=== PATIENT | female | born 1990 | race Caucasian/White ===

== ENCOUNTER 2019-04-04 13:21 | Emergency (ER) | payer SELFPAY ==
[~2019-04-04] VITALS: Ht 162.5 cm; Wt 82.7 kg
[2019-04-04] MEDS ORDERED: IBUPROFEN 600 MG (MOTRIN) TAB PO ONE (13:45)
--- NOTE | 2019-04-04 13:45 | ED Upper Extremity ---
General Chief Complaint: Trauma-Non Activation Stated Complaint: R ARM INJ Nursing Triage Note: was in the shower when she fell on her R arm with the rest of her body landing on top of her, now has swelling and pain in her R forearm and states the fingers on her R hand have a numb / tingly feeling Nursing Sepsis Screen: No Definite Risk Source: patient, family Exam Limitations: no limitations History of Present Illness Date Seen by Provider: Apr 04, 2019 Time Seen by Provider: 13:41 Initial Comments This 29-year-old female presents after she fell in the shower and sustained a contusion to the posterior aspect of the midportion of her right forearm. Patient is complaining of pain over the area. She denies loss sensation or range of motion of the shoulder or elbow or wrist. She denies other injury or accident. She is complaining of moderately severe sharp pain over the impact area. Allergies and Home Medications Allergies Coded Allergies: Penicillins (Verified Allergy, Unknown, 04/04/19) doxycycline (Verified Allergy, Unknown, 04/04/19) Patient Home Medication List Home Medication List Reviewed: Yes Review of Systems Constitutional: no symptoms reported; No chills, No fever EENTM: no symptoms reported Respiratory: no symptoms reported Cardiovascular: no symptoms reported Gastrointestinal: no symptoms reported Genitourinary: no symptoms reported Musculoskeletal: see HPI, other (over the posterior aspect of the midportion of the right forearm.) Skin: no symptoms reported Psychiatric/Neurological: No Symptoms Reported Past Zebywkg-Ywjexq-Haqydc Hx Past Med/Social Hx: Reviewed Nursing Past Med/Soc Hx Patient Social History Alcohol Use: Denies Use Recreational Drug Use: No Smoking Status: Current Everyday Smoker Type Used: Cigarettes 2nd Hand Smoke Exposure: Yes Recent Foreign Travel: No Contact w/Someone Who Travel: No Recent Infectious Disease Expo: No Recent Hopitalizations: No Physical Abuse: No Sexual Abuse: No Mistreated: No Fear: No Immunizations Up To Date Tetanus Booster (TDap): Unknown Seasonal Allergies Seasonal Allergies: No Past Medical History Respiratory: Yes Asthma Currently Using CPAP: No Currently Using BIPAP: No Cardiac: No Neurological: No Genitourinary: No Gastrointestinal: No Musculoskeletal: No Endocrine: No HEENT: No Cancer: No Psychosocial: No Integumentary: No Blood Disorders: No Physical Exam Vital Signs Vital Signs - First Documented 04/04/19 13:30 Temp 36.9 Pulse 94 Resp 18 B/P (MAP) 133/82 (99) Capillary Refill : Less Than 3 Seconds Height, Weight, BMI Height: '" Weight: lbs. oz. kg; 31.00 BMI Method: General Appearance: WD/WN, no apparent distress Neck: non-tender, supple Cardiovascular: normal peripheral pulses, regular rate, rhythm Respiratory: chest non-tender, lungs clear Gastrointestinal: normal bowel sounds, non tender, soft Back: normal inspection Shoulder: normal inspection, non-tender Elbow/Forearm: normal inspection, non-tender, pain (over the posterior aspect of the midportion of the right forearm. There is no crepitus or instability) Wrist: Yes normal inspection, Yes non-tender Hand: normal inspection Neurologic/Tendon: normal sensation, normal motor functions Neurologic/Psychiatric: no motor/sensory deficits, alert, normal mood/affect Skin: normal color, warm/dry Progress/Results/Core Measures Results/Orders My Orders Orders - WISNTON BLACK MD Forearm, Right, 2 Views (04/04/19 13:35) Ibuprofen Tablet (Motrin Tablet) (04/04/19 13:45) Vital Signs/I&O 04/04/19 13:30 Temp 36.9 Pulse 94 Resp 18 B/P (MAP) 133/82 (99) Blood Pressure Mean: 99 Progress Progress Note : Time: 13:56 Progress Note The patient received 600 mg of ibuprofen orally. X-ray of the right forearm film failed to demonstrate evidence of fracture or dislocation. Departure Impression Primary Impression: Contusion Qualified Codes: S50.11XA - Contusion of right forearm, initial encounter Disposition: 01 HOME, SELF-CARE Condition: Improved Departure-Patient Inst. Decision time for Depature: 13:58 Referrals: [facility], [facility] Patient Instructions: Contusion (DC) Add. Discharge Instructions: Ibuprofen 4 pain. Ice to the forearm today. Return of any problems or questions. Close follow-up with [facility]. All discharge instructions reviewed with patient and/or family. Voiced understanding. Scripts Ibuprofen (Ibuprofen) 800 Mg Tablet 600 MG PO Q8H PRN for PAIN, #30 TAB 0 Refills Prov: WINSTON BLACK MD 04/04/19 WINSTON BLACK MD Apr 04, 2019 13:45
--- NOTE | 2019-04-04 13:55 | Diagnostic Imaging Report ---
INDICATION: Right arm injury with pain. EXAMINATION: AP and lateral views of the right forearm are obtained. FINDINGS: No acute fracture or dislocation is identified. No abnormal lytic or sclerotic focus is seen, and there is no radiopaque foreign body. IMPRESSION: No acute abnormality. Dictated by: Dictated on workstation # [id number]
[2019-04-04] MEDS ORDERED: IBUP-1780 PO (14:00)
--- NOTE | 2019-04-04 14:00 | NUR ---
pt sitting in chair visiting with friend at this time, pt shows no s/s of distress, pt denies any needs or concerns at this time, will continue to monitor
[2019-04-04 14:03] VITALS: BP 133/82
== END 2019-04-04 14:03 | disposition home or self-care (01) ==
LOC: EDUNIT# 13:21 → ER 13:23
DX: S50.11XA Contusion of right forearm, initial encounter (principal); J45.909 Unspecified asthma, uncomplicated; F17.210 Nicotine dependence, cigarettes, uncomplicated; Z88.0 Allergy status to penicillin; Z88.1 Allergy status to other antibiotic agents; W18.2XXA Fall in (into) shower or empty bathtub, initial encounter
CPT/HCPCS: 73090